=== PATIENT | female | born 1975 | race Two or more races ===

== ENCOUNTER → 2017-05-24 | Outpatient (CLI) | payer OTHER ==
--- NOTE | 2017-05-24 17:08 | REPMRS ---
Patient History The patient states she had a clinical breast exam in 05/2017. No known family history of cancer. Retro-pectoral saline implants in both breasts, 2001. Digital Woman Screen Mammo: May 24, 2017 - Exam #: [id number] Bilateral CC and MLO view(s) were taken. Technologist: Melia Walker, Technologist Prior study comparison: April 26, 2015, digital woman screen mammo performed at [facility]. FINDINGS: There are scattered fibroglandular densities. There is a fairly symmetric fibroglandular pattern in both breasts. There has been no interval development of masses, areas of architectural distortion or clusters of microcalcifications typical of malignancy. No significant changes when compared with prior studies. ASSESSMENT: BI-RADS/ACR category 2 mammogram. Benign finding(s). Recommendation Routine screening mammogram of both breasts in 1 year (for women over age 40). This mammogram was interpreted with the aid of an FDA-approved computer-aided dectection system. Electronically Signed By: Price Purdy MD 05/24/17 [id number]
--- NOTE | 2017-05-24 17:40 | REP ---
PELVIC ULTRASOUND: Real-time sonographic evaluation of the pelvis performed utilizing transabdominal and endovaginal technique. The urinary bladder measures 4.3 x 1.7 cm. The uterus measures 12.9 x 7.6 x 8.3 cm, enlarged and heterogeneous. Endometrial thickness is approximately 10 mm. There is a dominant heterogeneous fibroid posteriorly and somewhat superiorly, measuring 5.9 x 5.1 x 5.4 cm. No free fluid is seen. The ovaries appear normal in size and echotexture, the right ovary measuring 4.2 x 1.8 x 1.6 cm and left ovary 3.5 x 2.4 x 1.8 cm. There is no adnexal mass or free fluid. IMPRESSION: Posterior superior uterine fibroid, maximum diameter 5.9 cm. Endometrial thickness 10 mm. No endometrial fluid collection or free fluid.
== END ==
LOC: M WHC 15:33
PROVIDERS: ATTEND Nurse Practitioner Women's Health
DX: Z12.31 Encounter for screening mammogram for malignant neoplasm of breast (principal); N92.0 Excessive and frequent menstruation with regular cycle; D25.9 Leiomyoma of uterus, unspecified
CPT/HCPCS: 76830; 76856; G0202

== ENCOUNTER → 2017-08-19 | Outpatient (CLI) | payer OTHER ==
[~2017-08-19] MED LIST: PROHANCE 279.3MG/ML 15ML VIAL (A9576) As Ordered ONE
--- NOTE | 2017-08-20 09:28 | REP ---
MRI pelvis without and with IV gadolinium: History: Intramural leiomyoma of the uterus. Abnormal heavy bleeding. Lower pelvic pain. Comparison study: Pelvic ultrasound May 24, 2017. This showed a posterosuperior uterine fibroid 5.9 cm in diameter. MRI technique: Sagittal, axial, and coronal imaging planes were utilized. T1 and T2-weighted scans are obtained with and without fat saturation. Gadolinium enhancement dose is 11 mL of intravenous ProHance. MRI findings: MR imaging confirms the presence of an enlarged uterus containing a fairly large fundal fibroid. Overall uterine dimensions are 12.2 x 7.5 x 8.3 cm. The fundal uterine leiomyoma appears to have a submucosal orientation with endometrial lining deformed and displaced. The fibroid measures 6.5 x 5.7 x 5.6 cm. No other fibroid is seen. Heterogeneous enhancement is seen in the fibroid and in the uterus on postcontrast imaging. No abnormal enhancement seen. No ovarian abnormality is observed on either side. There are small Nabothian cysts incidentally observed in the cervix. Urinary bladder is unremarkable. No abdominal wall defect is seen. No bony abnormalities observed. Impression: Solitary 6.5 cm submucosal fundal uterine mass consistent with fibroid. Signed by Rivas Shane MD 08/20/2017 01:11 P
== END ==
LOC: M RAD 15:22
PROVIDERS: ATTEND Obstetrics & Gynecology
DX: D25.1 Intramural leiomyoma of uterus (principal)

== ENCOUNTER → 2017-09-08 | Outpatient (CLI) | payer OTHER ==
[2017-09-08 07:40] LABS: MEAN CORPUSCULAR HGB CONC 33.9 g/dl (32.0-36.5); MEAN CORPUSCULAR VOLUME 94.1 fl (80.0-96.0); PLATELET COUNT, AUTOMATED 197 10^3/uL (150-450); RED CELL DISTRIBUTION WIDTH 12.8 % (11.5-14.5); WHITE BLOOD COUNT 7.8 10^3/uL (4.0-10.0)
[2017-09-08 08:26] LABS: ALBUMIN 3.5 GM/DL (3.2-5.2); ALBUMIN/GLOBULIN RATIO 1.03 (1.00-1.93); BILIRUBIN,TOTAL 0.4 MG/DL (0.2-1.0); CALCIUM LEVEL 8.7 MG/DL (8.5-10.1); CREATININE FOR GFR 1.09 MG/DL (0.55-1.02); GLOMERULAR FILTRATION RATE 58.1 (>58); POTASSIUM SERUM 4.3 MEQ/L (3.5-5.1); TOTAL PROTEIN 6.9 GM/DL (6.4-8.2)
== END ==
LOC: M LAB 06:24
PROVIDERS: ATTEND Nurse Practitioner Adult Health
DX: Z00.00 Encounter for general adult medical examination without abnormal findings (principal)

== ENCOUNTER → 2017-09-23 | Outpatient (REF) | payer OTHER | LOC: M SFHCLERA 09:59 | PROVIDERS: ATTEND Dermatology | DX: B07.9 Viral wart, unspecified (principal) ==

== ENCOUNTER → 2017-11-04 | Outpatient (REF) | payer OTHER | LOC: M LAB REF 11-09 14:05 | DX: D25.1 Intramural leiomyoma of uterus (principal); N92.1 Excessive and frequent menstruation with irregular cycle ==

== ENCOUNTER → 2017-12-20 | Outpatient (REF) | payer OTHER | LOC: M SFHCLERA 11:34 | DX: L98.9 Disorder of the skin and subcutaneous tissue, unspecified (principal) | CPT/HCPCS: 88305 ==

== ENCOUNTER → 2018-05-03 | Outpatient (CLI) | payer OTHER ==
[~2018-05-03] MED LIST changes: +PROHANCE 279.3MG/ML 15ML VIAL (A9576) As Ordered; -PROHANCE 279.3MG/ML 15ML VIAL (A9576) As Ordered ONE
== END ==
LOC: M RAD 15:29
DX: D25.0 Submucous leiomyoma of uterus (principal); N88.8 Other specified noninflammatory disorders of cervix uteri; N90.7 Vulvar cyst
CPT/HCPCS: A9576

== ENCOUNTER → 2018-08-16 | Outpatient (CLI) | payer OTHER | LOC: M WHC 14:19 | DX: Z12.31 Encounter for screening mammogram for malignant neoplasm of breast (principal); N60.31 Fibrosclerosis of right breast; N60.32 Fibrosclerosis of left breast ==

== ENCOUNTER → 2018-11-02 | Outpatient (CLI) | payer BC ==
[2018-11-02 07:14] LABS: HEMATOCRIT 41.7 % (36.0-47.0); HEMOGLOBIN 13.6 g/dl (12.0-15.5); MEAN CORPUSCULAR HEMOGLOBIN 31.1 pg (27.0-33.0); MEAN CORPUSCULAR HGB CONC 32.6 g/dl (32.0-36.5); MEAN CORPUSCULAR VOLUME 95.2 fl (80.0-96.0); PLATELET COUNT, AUTOMATED 229 10^3/uL (150-450); RED BLOOD COUNT 4.38 10^6/uL (4.00-5.40); WHITE BLOOD COUNT 6.2 10^3/uL (4.0-10.0)
[2018-11-02 07:38] LABS: ALBUMIN 3.9 GM/DL (3.2-5.2); BILIRUBIN,TOTAL 0.5 MG/DL (0.2-1.0); CALCIUM LEVEL 8.8 MG/DL (8.5-10.1); CREATININE FOR GFR 1.08 MG/DL (0.55-1.30); FREE T4 0.83 NG/DL (0.76-1.46); GLOMERULAR FILTRATION RATE 58.4 (>58); POTASSIUM SERUM 4.2 MEQ/L (3.5-5.1); THYROID STIMULATING HORMONE 4.99 uIU/ML (0.358-3.740); TOTAL PROTEIN 6.8 GM/DL (6.4-8.2)
== END ==
LOC: M LAB 06:42
PROVIDERS: ATTEND Nurse Practitioner Adult Health
DX: Z00.00 Encounter for general adult medical examination without abnormal findings (principal)

== ENCOUNTER → 2018-11-11 | Outpatient (REF) | payer BC ==
[2018-11-16 00:07] LABS: HPV HYBRID CAPTURE II Negative (Negative)
== END ==
LOC: M SFHCWAGY 16:03
PROVIDERS: ATTEND Nurse Practitioner Women's Health
DX: Z01.419 Encounter for gynecological examination (general) (routine) without abnormal findings (principal)
CPT/HCPCS: 87624; G0123

== ENCOUNTER → 2019-09-26 | Outpatient (CLI) | payer BC ==
--- NOTE | 2019-09-26 16:05 | REPMRS ---
Patient History The patient states she has not had a clinical breast exam in over a year. No known family history of cancer. Retro-pectoral saline implants in both breasts, 2001. No Hormone Replacement Therapy Digital Woman Screen Mammo: September 26, 2019 - Exam #: [id number] Bilateral CC and MLO view(s) were taken. Technologist: Lori Malone, Technologist Prior study comparison: August 16, 2018, bilateral digital woman screen mammo performed at [facility]. May 24, 2017, digital woman screen mammo performed at [facility]. FINDINGS: There are scattered fibroglandular densities. The visualized implant margins are smooth. Breast parenchymal density pattern is essentially symmetric. No dominant mass, grouped microcalcification, or architectural distortion is evident on either side. 3-D tomosynthesis shows no additional findings. No significant changes when compared with prior studies. Assessment: BI-RADS/ACR category 2 mammogram. Benign Findings. Recommendation Routine screening mammogram of both breasts in 1 year (for women over age 40). This patient's Lifetime Breast Cancer RIsk is estimated at 8.2 %. This mammogram was interpreted with the aid of an FDA-approved computer-aided dectection system. Electronically Signed By: Lewis Shane MD 09/26/19 [id number]
== END ==
LOC: M WHC 14:45
PROVIDERS: ATTEND Nurse Practitioner Women's Health
DX: Z12.31 Encounter for screening mammogram for malignant neoplasm of breast (principal); Z98.82 Breast implant status

== ENCOUNTER → 2019-12-25 | Outpatient (REF) | payer BC | LOC: M LAB REF 18:43 | PROVIDERS: ATTEND Dermatology | DX: D36.17 Benign neoplasm of peripheral nerves and autonomic nervous system of trunk, unspecified (principal) ==

== ENCOUNTER → 2020-07-02 | Outpatient (CLI) | payer BC | LOC: M LABSMTC 14:07 | PROVIDERS: ATTEND Pediatrics | DX: Z20.828 Contact with and (suspected) exposure to other viral communicable diseases (principal) ==

== ENCOUNTER → 2020-09-17 | Outpatient (REF) | payer BC ==
[2020-09-17 17:31] LABS: CALCIUM LEVEL 8.6 MG/DL (8.5-10.1); CREATININE FOR GFR 1.2 MG/DL (0.55-1.30); GLOMERULAR FILTRATION RATE 51.3 (>58); POTASSIUM SERUM 3.8 MEQ/L (3.5-5.1)
== END ==
LOC: M SFHCPLAZ 14:58
PROVIDERS: ATTEND Family Medicine
DX: N18.30 Chronic kidney disease, stage 3 unspecified (principal)

== ENCOUNTER → 2020-09-17 | Outpatient (REF) | payer BC ==
[2020-09-17 18:09] LABS: APPEARANCE, URINE HAZY (CLEAR); BACTERIA, URINE AUTO 1+ (NEGATIVE); BILIRUBIN, URINE AUTO NEGATIVE (NEGATIVE); BLOOD, URINE BLOOD 3+ (NEGATIVE); COLOR, URINE STRAW (YELLOW); GLUCOSE, URINE (UA) AUTO NEGATIVE (NEGATIVE); KETONE, URINE AUTO NEGATIVE (NEGATIVE); LEUKOCYTE ESTERASE, URINE AUTO 3+ (NEGATIVE); MUCUS, URINE SMALL (NEGATIVE); NITRITE, URINE AUTO NEGATIVE (NEGATIVE); PROTEIN, URINE AUTO 1+ mg/dL (NEGATIVE); RBC, URINE AUTO 6 /HPF (0-3); SPECIFIC GRAVITY URINE AUTO 1.002 (1.002-1.035); SQUAMOUS EPITHELIAL CELL UR AU 0 /HPF (0-6); UROBILINOGEN, URINE AUTO 0.2 mg/dL (0.0-2.0); WBC, URINE AUTO 74 /HPF (0-3)
== END ==
LOC: M SFHCPLAZ 17:05
PROVIDERS: ATTEND Family Medicine
DX: N30.01 Acute cystitis with hematuria (principal); N18.30 Chronic kidney disease, stage 3 unspecified; R30.0 Dysuria

== ENCOUNTER → 2022-03-31 | Outpatient (CLI) | payer BC | LOC: M WHC 15:20 | PROVIDERS: ATTEND Obstetrics & Gynecology | DX: Z12.31 Encounter for screening mammogram for malignant neoplasm of breast (principal); Z98.82 Breast implant status ==

== ENCOUNTER → 2022-04-07 | Outpatient (CLI) | payer BC ==
[2022-04-07 13:51] LABS: ALT/SGPT 25 U/L (12-78); BILIRUBIN,TOTAL 0.5 MG/DL (0.2-1.0); BLOOD UREA NITROGEN 15 MG/DL (7-18); CALCIUM LEVEL 9.7 MG/DL (8.5-10.1); CARBON DIOXIDE LEVEL 27 MEQ/L (21-32); CHLORIDE LEVEL 104 MEQ/L (98-107); CHOLESTEROL LEVEL 228 MG/DL (<200); CHOLESTEROL RISK RATIO 3.081 (<5); CREATININE FOR GFR 0.93 MG/DL (0.55-1.30); GLOMERULAR FILTRATION RATE > 60.0 (>58); GLUCOSE, FASTING 89 MG/DL (70-100); HDL CHOLESTEROL 74 MG/DL (>40); LDL CHOLESTEROL 141 MG/DL (<100); NON-HDL-C 154 MG/DL; POTASSIUM SERUM 4.1 MEQ/L (3.5-5.1); SODIUM LEVEL 139 MEQ/L (136-145); TOTAL PROTEIN 6.8 GM/DL (6.4-8.2); TRIGLYCERIDES LEVEL 63 MG/DL (<150)
[2022-04-07 14:01] LABS: TOTAL 25(OH) VITAMIN D 48.9 NG/ML (30.0-100.0)
== END ==
LOC: M ADAMS 10:19
PROVIDERS: ATTEND Nurse Practitioner Adult Health
DX: Z00.00 Encounter for general adult medical examination without abnormal findings (principal); Z13.21 Encounter for screening for nutritional disorder; Z13.220 Encounter for screening for lipoid disorders; Z13.29 Encounter for screening for other suspected endocrine disorder

== ENCOUNTER → 2023-02-02 | Outpatient (REF) | payer BC | LOC: M SFHCPLAZ 11:17 | PROVIDERS: ATTEND Family Medicine | DX: R10.9 Unspecified abdominal pain (principal); Z53.8 Procedure and treatment not carried out for other reasons ==

== ENCOUNTER → 2023-02-02 | Outpatient (CLI) | payer BC ==
[2023-02-02 14:16] LABS: BASO % 0.7 % (0.0-1.0); EOS # 0.2 10^3/uL (0.0-0.5); EOS % 4.2 % (0.0-3.0); HEMATOCRIT 42.4 % (36.0-47.0); HEMOGLOBIN 14.1 g/dl (12.0-15.5); LYMPH # 1.3 10^3/uL (1.5-5.0); LYMPH % 22.6 % (24.0-44.0); MEAN CORPUSCULAR HGB CONC 33.3 g/dl (32.0-36.5); MEAN CORPUSCULAR VOLUME 99.3 fl (80.0-96.0); MONO # 0.4 10^3/uL (0.0-0.8); MONO % 6.3 % (2.0-8.0); NEUTROPHILS # 3.8 10^3/uL (1.5-8.5); PLATELET COUNT, AUTOMATED 249 10^3/uL (150-450); RED BLOOD COUNT 4.27 10^6/uL (4.00-5.40); WHITE BLOOD COUNT 5.7 10^3/uL (4.0-10.0)
[2023-02-02 14:33] LABS: LIPASE 29 U/L (12-53)
[2023-02-02 14:36] LABS: ALBUMIN 3.8 G/DL (3.2-5.2); ALKALINE PHOSPHATASE 63 U/L (46-116); ALT/SGPT 33 U/L (7.0-40); AST/SGOT 44 U/L (<34); BILIRUBIN,TOTAL 0.5 MG/DL (0.3-1.2); BLOOD UREA NITROGEN 9 MG/DL (9-23); CALCIUM LEVEL 9.1 MG/DL (8.5-10.1); CARBON DIOXIDE LEVEL 30 MMOL/L (20-31); CHLORIDE LEVEL 106 MMOL/L (98-107); CREATININE FOR GFR 0.96 MG/DL (0.55-1.30); GLOMERULAR FILTRATION RATE > 60.0 (>58); GLUCOSE, FASTING 78 MG/DL (60-100); POTASSIUM SERUM 4.5 MMOL/L (3.5-5.1); SODIUM LEVEL 141 MMOL/L (136-145); TOTAL PROTEIN 6.6 G/DL (5.7-8.2)
[2023-02-02 14:38] LABS: FREE T4 0.87 NG/DL (0.89-1.76); THYROID STIMULATING HORMONE 9.402 uIU/ML (0.55-4.78)
[2023-02-02 14:40] LABS: THYROID PEROXIDASE ANTIBODY < 28.0 U/ML (<60.0)
== END ==
LOC: M PLALAB 11:28
PROVIDERS: ATTEND Family Medicine
DX: R10.13 Epigastric pain (principal)

== ENCOUNTER → 2023-05-11 | Outpatient (REF) | payer BC ==
[2023-05-11 13:50] LABS: CHOLESTEROL RISK RATIO 2.89 (<5); HDL CHOLESTEROL 76.3 MG/DL (>40); LDL CHOLESTEROL 128.1 MG/DL (<100); NON-HDL-C 144.7 MG/DL
[2023-05-11 13:54] LABS: THYROID STIMULATING HORMONE 3.466 uIU/ML (0.55-4.78)
[2023-05-11 13:55] LABS: FREE T4 1.26 NG/DL (0.89-1.76)
== END ==
LOC: M SFHCPLAZ 07:52
PROVIDERS: ATTEND Nurse Practitioner Adult Health
DX: E03.9 Hypothyroidism, unspecified (principal); Z13.220 Encounter for screening for lipoid disorders

== ENCOUNTER → 2023-10-07 | Outpatient (CLI) | payer BC | LOC: M WHC 14:36 | PROVIDERS: ATTEND Nurse Practitioner Family | DX: Z12.31 Encounter for screening mammogram for malignant neoplasm of breast (principal); R92.323 Mammographic fibroglandular density, bilateral breasts ==

== ENCOUNTER → 2023-10-07 | Outpatient (REF) | payer BC | LOC: M SFHCWAGY 17:15 | PROVIDERS: ATTEND Nurse Practitioner Family | DX: Z12.4 Encounter for screening for malignant neoplasm of cervix (principal) | CPT/HCPCS: 87624; G0123 ==

== ENCOUNTER → 2023-11-12 | Outpatient (CLI) | payer BC | LOC: M RAD 08:45 | PROVIDERS: ATTEND Nurse Practitioner Adult Health | DX: R10.13 Epigastric pain (principal); R14.0 Abdominal distension (gaseous); E03.9 Hypothyroidism, unspecified ==

== ENCOUNTER → 2024-05-24 | Outpatient (CLI) | payer BC ==
[2024-05-24 08:04] LABS: ALBUMIN 3.5 G/DL (3.2-5.2); ALKALINE PHOSPHATASE 77 U/L (46-116); ALT/SGPT 33 U/L (7.0-40); AST/SGOT 35 U/L (<34); BILIRUBIN,TOTAL 0.3 MG/DL (0.3-1.2); BLOOD UREA NITROGEN 12 MG/DL (9-23); CALCIUM LEVEL 9.1 MG/DL (8.5-10.1); CARBON DIOXIDE LEVEL 29 MMOL/L (20-31); CHLORIDE LEVEL 107 MMOL/L (98-107); CHOLESTEROL LEVEL 228 MG/DL (<200); CREATININE FOR GFR 0.98 MG/DL (0.55-1.30); FREE T4 1.24 NG/DL (0.89-1.76); GLOMERULAR FILTRATION RATE > 60.0 (>51); GLUCOSE, FASTING 88 MG/DL (60-100); LDL CHOLESTEROL 142.4 MG/DL (<100); POTASSIUM SERUM 4.4 MMOL/L (3.5-5.1); SODIUM LEVEL 139 MMOL/L (136-145); THYROID STIMULATING HORMONE 7.081 uIU/ML (0.55-4.78); TOTAL PROTEIN 6.5 G/DL (5.7-8.2); TRIGLYCERIDES LEVEL 83 MG/DL (<150)
== END ==
LOC: M LAB 06:28
PROVIDERS: ATTEND Nurse Practitioner Adult Health
DX: Z00.00 Encounter for general adult medical examination without abnormal findings (principal); Z12.11 Encounter for screening for malignant neoplasm of colon; E03.9 Hypothyroidism, unspecified; Z13.220 Encounter for screening for lipoid disorders

== ENCOUNTER → 2024-07-26 | Outpatient (CLI) | payer BC ==
[2024-07-26 19:38] LABS: FREE T4 1.78 NG/DL (0.89-1.76); THYROID STIMULATING HORMONE 0.502 uIU/ML (0.55-4.78)
== END ==
LOC: M PLALAB 14:57
PROVIDERS: ATTEND Nurse Practitioner Adult Health
DX: E03.9 Hypothyroidism, unspecified (principal)

== ENCOUNTER → 2025-04-25 | Outpatient (CLI) | payer BC ==
[2025-04-25 12:24] LABS: PLATELET COUNT, AUTOMATED 209 10^3/uL (150-450)
[2025-04-25 12:31] LABS: FREE T4 1.88 NG/DL (0.89-1.76)
[2025-04-25 12:32] LABS: ALT/SGPT 32.0 U/L (7.0-40); AST/SGOT 42.0 U/L (<34); CALCIUM LEVEL 9.7 MG/DL (8.5-10.1); CARBON DIOXIDE LEVEL 29.0 MMOL/L (20-31); CHLORIDE LEVEL 97.0 MMOL/L (98-107); CHOLESTEROL LEVEL 284.0 MG/DL (<200); CHOLESTEROL RISK RATIO 3.24 (<5); CREATININE FOR GFR 1.09 MG/DL (0.55-1.30); GLOMERULAR FILTRATION RATE 61.1 (>51); LDL CHOLESTEROL 185.9 MG/DL (<100); NON-HDL-C 196.5 MG/DL; POTASSIUM SERUM 4.5 MMOL/L (3.5-5.1); SODIUM LEVEL 139.0 MMOL/L (136-145); TRIGLYCERIDES LEVEL 53.0 MG/DL (<150)
== END ==
LOC: M PLALAB 08:32
PROVIDERS: ATTEND Nurse Practitioner Adult Health
DX: Z00.00 Encounter for general adult medical examination without abnormal findings (principal); Z13.220 Encounter for screening for lipoid disorders; E03.9 Hypothyroidism, unspecified